=== PATIENT | female | born 1940 | race Caucasian/White ===

== ENCOUNTER 2020-07-29 04:55 | Observation (INO) | payer OTHER, BC ==
[2020-07-29] MEDS ORDERED: METHYLPREDNISOLONE 125 MG INJ ONE (06:13)
[2020-07-29] MEDS ORDERED: IPRATROPIUM BROM 0.5MG/2.5ML ONE (06:13)
[2020-07-29] MEDS ORDERED: PANTOPRAZOLE 40 MG INJ ONE (06:14)
[2020-07-29] MEDS ORDERED: NA CHLORIDE 0.9% 1,000 ML ONE (06:14)
[2020-07-29] MEDS ORDERED: Levofloxacin500mg IV 500 MG/100 ML BAG IV ONE (06:14)
[2020-07-29] MEDS ORDERED: LEVALBUTEROL 1.25 MG/3 ML NEB ONE (06:18)
[2020-07-29 06:30] LABS: Urine Blood NEGATIVE (NEG); Urine Glucose NEGATIVE (NEG); Urine Protein NEGATIVE (NEG)
[2020-07-29 06:32] LABS: Absolute Lymphocytes (CBC) 1.3 K/uL (0.7-4.9); Hematocrit 42.3 % (36.0-45.0); Lymphocytes % 15.3 % (15.3-44.8); MPV 9.9 fL (7.6-11.3); RBC Red Blood Cell Count 4.73 M/uL (3.86-4.86)
[2020-07-29 06:35] LABS: Albumin 3.7 g/dL (3.4-5.0); Bilirubin Direct 0.1 mg/dL (0-0.2); Bilirubin Total 0.4 mg/dL (0.2-1.0); Potassium 3.7 mmol/L (3.5-5.1); Protein, Total 7.8 g/dL (6.4-8.2); Troponin (Emerg Dept Use Only) 0.06 ng/mL (0.0-0.045)
[2020-07-29] MEDS ORDERED: ASPIRIN EC 81 MG TAB PO ONE (06:36)
--- NOTE | 2020-07-29 07:03 | EDPHYS ---
Physician Documentation [facility] Name: Karlie Johnson Age: 80 yrs Sex: Female : 1940 Arrival Date: 07/29/2020 Time: 04:59 Bed 19 Private MD: Osmany Cade B ED Physician Dinh Mancini HPI: 07/29 05:46 This 80 yrs old Female presents to ER via Ambulatory with complaints of penny Cough, acid reflux. 05:46 The patient or guardian reports airway noise, cough, difficulty breathing. Onset: The penny symptoms/episode began/occurred just prior to arrival. Severity of symptoms: At their worst the symptoms were mild, moderate, in the emergency department the symptoms are unchanged. Modifying factors: The symptoms are alleviated by. Associated signs and symptoms: The patient has no apparent associated signs or symptoms. Historical: - Allergies: 05:13 PENICILLINS; mg2 05:13 Sulfa (Sulfonamide Antibiotics); mg2 - Home Meds: 05:13 Metoprolol Tartrate Oral [Active]; Levothroid 112 mcg Oral tab [Active]; hctz [Active]; mg2 telmisartan 80 mg oral tab [Active]; calcium caltrate [Active]; aspirin [Active]; - PMHx: 05:14 Hypertension; hashimotos; mg2 - PSHx: 05:14 lumpectmy; mg2 - Immunization history:: Flu vaccine is up to date. - Social history:: Smoking status: Patient denies any tobacco usage or history of. Patient uses alcohol, weekly. Patient/guardian denies using street drugs, IV drugs. - Family history:: not pertinent. ROS: 05:46 Constitutional: Negative for fever, chills, and weight loss, Eyes: Negative for injury, penny pain, redness, and discharge, ENT: Negative for injury, pain, and discharge, Neck: Negative for injury, pain, and swelling, Respiratory: Negative for shortness of breath, cough, wheezing, and pleuritic chest pain, Back: Negative for injury and pain, : Negative for injury, bleeding, discharge, and swelling, MS/Extremity: Negative for injury and deformity, Skin: Negative for injury, rash, and discoloration, Neuro: Negative for headache, weakness, numbness, tingling, and seizure, Psych: Negative for depression, anxiety, suicide ideation, homicidal ideation, and hallucinations, Allergy/Immunology: Negative for hives, rash, and allergies, Endocrine: Negative for neck swelling, polydipsia, polyuria, polyphagia, and marked weight changes, Hematologic/Lymphatic: Negative for swollen nodes, abnormal bleeding, and unusual bruising. 05:46 Cardiovascular: Positive for chest pain. 05:46 Respiratory: Positive for cough, shortness of breath. 05:46 Abdomen/GI: Positive for gerd. Exam: 05:46 Constitutional: This is a well developed, well nourished patient who is awake, alert, pneny and in no acute distress. Head/Face: Normocephalic, atraumatic. Eyes: Pupils equal round and reactive to light, extra-ocular motions intact. Lids and lashes normal. Conjunctiva and sclera are non-icteric and not injected. Cornea within normal limits. Periorbital areas with no swelling, redness, or edema. ENT: Nares patent. No nasal discharge, no septal abnormalities noted. Tympanic membranes are normal and external auditory canals are clear. Oropharynx with no redness, swelling, or masses, exudates, or evidence of obstruction, uvula midline. Mucous membranes moist. Neck: Trachea midline, no thyromegaly or masses palpated, and no cervical lymphadenopathy. Supple, full range of motion without nuchal rigidity, or vertebral point tenderness. No Meningismus. Chest/axilla: Normal chest wall appearance and motion. Nontender with no deformity. No lesions are appreciated. Cardiovascular: Regular rate and rhythm with a normal S1 and S2. No gallops, murmurs, or rubs. Normal PMI, no JVD. No pulse deficits. Abdomen/GI: Soft, non-tender, with normal bowel sounds. No distension or tympany. No guarding or rebound. No evidence of tenderness throughout. Back: No spinal tenderness. No costovertebral tenderness. Full range of motion. Female : Normal external genitalia. Skin: Warm, dry with normal turgor. Normal color with no rashes, no lesions, and no evidence of cellulitis. MS/ Extremity: Pulses equal, no cyanosis. Neurovascular intact. Full, normal range of motion. Neuro: Awake and alert, GCS 15, oriented to person, place, time, and situation. Cranial nerves II-XII grossly intact. Motor strength 5/5 in all extremities. Sensory grossly intact. Cerebellar exam normal. Normal gait. Psych: Awake, alert, with orientation to person, place and time. Behavior, mood, and affect are within normal limits. 05:46 Respiratory: the patient does not display signs of respiratory distress, Respirations: labored breathing, that is mild, that is moderate, Breath sounds: bronchial sounds, decreased breath sounds, rhonchi, wheezing: expiratory Respiratory rate: 18 07:41 ECG was reviewed by the Attending Physician. epnny 07:43 ECG was reviewed by the Attending Physician. penny Vital Signs: 05:09 BP 161 / 92; Pulse 62; Resp 18; Temp 98.3; Pulse Ox 98% on R/A; Weight 65.77 kg; Height mg2 5 ft. 4 in. (162.56 cm); Pain 2/10; 06:33 BP 167 / 82; Pulse 62; Resp 18; Pulse Ox 97% on Nebulizer Mask; mg2 08:13 BP 147 / 96; Pulse 66; Resp 17; Pulse Ox 98% ; bp 09:00 BP 149 / 86; Pulse 64; Resp 16; Pulse Ox 94% ; bp 10:00 BP 147 / 79; Pulse 68; Resp 17; Pulse Ox 99% ; bp 05:09 Body Mass Index 24.89 (65.77 kg, 162.56 cm) mg2 MDM: 05:01 Patient medically screened. penny 05:49 Differential Diagnosis: Obstructed Airway Bronchitis Upper Respiratory Infection penny Pharyngitis Asthma Exacerbation Pneumonia. Data reviewed: vital signs, nurses notes, lab test result(s), EKG, radiologic studies, plain films. Data interpreted: ekg monitor tech: rate is 62 beats/min, rhythm is regular, Pulse oximetry: on room air. Test interpretation: by ED physician or midlevel provider: ECG, plain radiologic studies. Counseling: I had a detailed discussion with the patient and/or guardian regarding: the historical points, exam findings, and any diagnostic results supporting the discharge/admit diagnosis, the presence of at least one elevated blood pressure reading (>120/80) during this emergency department visit, lab results, radiology results. 07:00 ED course: pt without cp, trop is elevated. penny 07/29 05:45 Order name: Basic Metabolic Panel; Complete Time: 06:53 penny 07/29 05:45 Order name: CBC with Diff; Complete Time: 06:53 penny 07/29 05:45 Order name: LFT's; Complete Time: 06:53 [facility] 07/29 05:45 Order name: Magnesium; Complete Time: 06:53 [facility] 07/29 05:45 Order name: NT PRO-BNP; Complete Time: 06:53 [facility] 07/29 05:45 Order name: Troponin (emerg Dept Use Only); Complete Time: 06:53 [facility] 07/29 05:45 Order name: XRAY Chest (1 view) [facility] 07/29 05:45 Order name: Lipase; Complete Time: 06:53 [facility] 07/29 05:45 Order name: Blood Culture Adult (2) [facility] 07/29 05:51 Order name: D-Dimer; Complete Time: 06:53 [facility] 07/29 06:23 Order name: Urine Dipstick--Ancillary (enter results); Complete Time: 06:53 [facility] 07/29 06:33 Order name: CT Chest Angio; Complete Time: 07:39 [facility] 07/29 07:04 Order name: US Extremity Venous W Compression Nigel [facility] 07/29 08:51 Order name: Procalcitonin [facility] 07/29 05:45 Order name: EKG; Complete Time: 05:46 [facility] 07/29 05:45 Order name: Cardiac monitoring; Complete Time: 06:02 [facility] 07/29 05:45 Order name: EKG - Nurse/Tech; Complete Time: 05:54 [facility] 07/29 05:45 Order name: IV Saline Lock; Complete Time: 06:03 [facility] 07/29 06:59 Order name: EKG; Complete Time: 07:00 [facility] 07/29 08:51 Order name: CONS Physician Consult [facility] 07/29 09:43 Order name: US [facility] 07/29 05:45 Order name: Labs collected and sent; Complete Time: 06:03 [facility] 07/29 05:45 Order name: O2 Per Protocol; Complete Time: 06:03 [facility] 07/29 05:45 Order name: O2 Sat Monitoring; Complete Time: 06:03 [facility] 07/29 06:59 Order name: EKG - Nurse/Tech; Complete Time: 07:23 [facility] EC:41 Rate is 60 beats/min. Rhythm is regular. QRS [place] is Normal. OK interval is normal. QRS penny interval is normal. QT interval is normal. No Q waves. T waves are Normal. ST Segment is depressed in leads II, III, aVF, V5, V6. Clinical impression: NSR w/ Non-specific ST/T Changes. Interpreted by me. Reviewed by me. 07:43 Rate is 73 beats/min. Rhythm is regular. QRS [place] is Normal. OK interval is normal. QRS penny interval is normal. QT interval is normal. No Q waves. T waves are Normal. ST Segment is depressed in leads II, III, aVF. Clinical impression: NSR w/ Non-specific ST/T Changes. Interpreted by me. Reviewed by me. Administered Medications: 06:22 Drug: Xopenex 2.5 mg Route: Inhalation; mg2 06:22 Drug: AtroVENT Aerosol 0.5 mg Route: Inhalation; mg2 06:33 Drug: Aspirin Chewable Tablet 162 mg Route: PO; ll2 06:55 Follow up: Response: No adverse reaction ll2 06:33 Drug: SOLU-Medrol 125 mg Route: IVP; Site: right forearm; ll2 06:55 Follow up: Response: No adverse reaction ll2 06:34 Drug: ProTONIX 40 mg Route: IVP; Site: right forearm; ll2 06:56 Follow up: Response: No adverse reaction mg2 06:34 Drug: NS 0.9% 1000 ml Route: IV; Rate: 125 ml/hr; Site: right forearm; ll2 10:32 Follow up: IV Status: Infusion continued upon admission; IV Intake: 500ml bp 06:34 Drug: levofloxacin 500 mg Volume: 100 ml; Route: IVPB; Infused Over: 60 mins; Site: ll2 right forearm; 10:31 Follow up: IV Status: Completed infusion; IV Intake: 100ml bp 07:15 Drug: Lovenox 1 mg/kg Route: Sub-Q; Site: right lower abdomen; bp 10:31 Follow up: Response: No adverse reaction bp 07:15 Drug: PlaVIX 300 mg Route: PO; bp 07:23 Follow up: Response: No adverse reaction bp Disposition: 07/29/20 07:03 Hospitalization ordered by Ruddy Hanley for Inpatient Admission. Preliminary diagnosis are Dyspnea, Pneumonia, unspecified organism - aspiration, Chest pain, unspecified, Essential (primary) hypertension, Gastro-esophageal reflux disease, Solitary pulmonary nodule, Atelectasis. - Bed requested for Telemetry/MedSurg (Inpatient). - Status is Inpatient Admission. aa5 - Condition is Fair. - Problem is new. - Symptoms have improved. Signatures: Dispatcher [employer] EDMS Dinh Mancini MD MD cha Calderon, Audri, RN RN aa5 Rober Cisse, BUSINESS RECORDS MANAGER-C BUSINESS RECORDS MANAGER-Cla1 Cameron Reyes RN RN ja1 Bo Rivas, RN RN bp Umair Sabillon, RN RN [facility] Madelin Tanner RN RN ll2 Corrections: (The following items were deleted from the chart) 07:45 07:03 Hospitalization Ordered by Ruddy Hanley MD for Inpatient Admission. Preliminary [facility] diagnosis is Dyspnea; Pneumonia, unspecified organism - aspiration; Chest pain, unspecified; Essential (primary) hypertension; Gastro-esophageal reflux disease. Bed requested for Telemetry/MedSurg (Inpatient). Status is Inpatient Admission. Condition is Fair. Problem is new. Symptoms have improved. [facility] 10:05 07:45 07/29/2020 07:03 Hospitalization Ordered by Ruddy Hanley MD for Inpatient ja1 Admission. Preliminary diagnosis is Dyspnea; Pneumonia, unspecified organism - aspiration; Chest pain, unspecified; Essential (primary) hypertension; Gastro-esophageal reflux disease; Solitary pulmonary nodule; Atelectasis. Bed requested for Telemetry/MedSurg (Inpatient). Status is Inpatient Admission. Condition is Fair. Problem is new. Symptoms have improved. [facility] 10:10 10:05 07/29/2020 07:03 Hospitalization Ordered by Ruddy Hanley MD for Inpatient ja1 Admission. Preliminary diagnosis is Dyspnea; Pneumonia, unspecified organism - aspiration; Chest pain, unspecified; Essential (primary) hypertension; Gastro-esophageal reflux disease; Solitary pulmonary nodule; Atelectasis. Bed requested for Telemetry/MedSurg (Inpatient). Status is Inpatient Admission. Condition is Fair. Problem is new. Symptoms have improved. [facility] 10:56 10:10 07/29/2020 07:03 Hospitalization Ordered by Ruddy Hanley MD for Inpatient aa5 Admission. Preliminary diagnosis is Dyspnea; Pneumonia, unspecified organism - aspiration; Chest pain, unspecified; Essential (primary) hypertension; Gastro-esophageal reflux disease; Solitary pulmonary nodule; Atelectasis. Bed requested for Telemetry/MedSurg (Inpatient). Status is Inpatient Admission. Condition is Fair. Problem is new. Symptoms have improved. [facility]
--- NOTE | 2020-07-29 07:03 | ER ---
Nurse's Notes [facility] Name: Karlie Johnson Age: 80 yrs Sex: Female : 1940 Arrival Date: 07/29/2020 Time: 04:59 Bed 19 Private MD: Osmany Cade B Diagnosis: Dyspnea;Pneumonia, unspecified organism-aspiration;Chest pain, unspecified;Essential (primary) hypertension;Gastro-esophageal reflux disease;Solitary pulmonary nodule;Atelectasis Presentation: 07/29 05:09 Chief complaint: Patient states: i woke up \T\ 0315 this morning with acid reflux and mg2 have this crackling or wheezing sound in my chest. i took antacid already. Coronavirus screen: Client denies travel out of the [place] in the last 14 days. Ebola Screen: No symptoms or risks identified at this time. Initial Sepsis Screen: Does the patient meet any 2 criteria? No. Patient's initial sepsis screen is negative. Does the patient have a suspected source of infection? No. Patient's initial sepsis screen is negative. Risk Assessment: Do you want to hurt yourself or someone else? Patient reports no desire to harm self or others. Onset of symptoms was July 29, 2020 at 03:15. 05:09 Method Of Arrival: Ambulatory mg2 05:09 Acuity: MARYANN 3 mg2 Historical: - Allergies: 05:13 PENICILLINS; mg2 05:13 Sulfa (Sulfonamide Antibiotics); mg2 - Home Meds: 05:13 Metoprolol Tartrate Oral [Active]; Levothroid 112 mcg Oral tab [Active]; hctz [Active]; mg2 telmisartan 80 mg oral tab [Active]; calcium caltrate [Active]; aspirin [Active]; - PMHx: 05:14 Hypertension; hashimotos; mg2 - PSHx: 05:14 lumpectmy; mg2 - Immunization history:: Flu vaccine is up to date. - Social history:: Smoking status: Patient denies any tobacco usage or history of. Patient uses alcohol, weekly. Patient/guardian denies using street drugs, IV drugs. - Family history:: not pertinent. Screenin:32 Abuse screen: Denies threats or abuse. Denies injuries from another. Nutritional mg2 screening: No deficits noted. Tuberculosis screening: No symptoms or risk factors identified. Fall Risk IV access (20 points). Assessment: 05:35 Reassessment: see triage assessment. General: Appears in no apparent distress. Behavior ll2 is calm, cooperative, appropriate for age. Pain: Complains of pain in xyphoid area and mid-sternal area. Neuro: Level of Consciousness is awake, alert, obeys commands, Oriented to person, place, time, situation. Cardiovascular: Capillary refill < 3 seconds Patient's skin is warm and dry. Respiratory: Airway is patent Respiratory effort is even, unlabored, Respiratory pattern is regular, symmetrical, Breath sounds with crackles bilaterally. Breath sounds with wheezes bilaterally. GI: No signs and/or symptoms were reported involving the gastrointestinal system. : No signs and/or symptoms were reported regarding the genitourinary system. EENT: No signs and/or symptoms were reported regarding the EENT system. Derm: Skin is intact, is healthy with good turgor, Skin is dry. 06:31 Reassessment: D-dimer of 1123 relayed by the cardiac cath tech Trista. provider informed. mg2 06:37 Reassessment: Patient and/or family updated on plan of care and expected duration. Pain ll2 level reassessed. Patient is alert, oriented x 3, equal unlabored respirations, skin warm/dry/pink. 07:00 Reassessment: RECD REPORT FROM DENNIS PRATT. 80YO WF P/W COUGH AND CP. INITIAL TROP AND bp DDIMER NOTED POSITIVE, ADMIT INITIATED. 07:05 Reassessment: PT TO CT. bp 08:13 Reassessment: Patient appears in no apparent distress at this time. PT SEEN BY ADMIT bp . ADMIT IN PROCESS. 09:00 Reassessment: Patient appears in no apparent distress at this time. No changes from bp previously documented assessment. Patient is alert, oriented x 3, equal unlabored respirations, skin warm/dry/pink. 10:08 Reassessment: Patient appears in no apparent distress at this time. No changes from bp previously documented assessment. Patient is alert, oriented x 3, equal unlabored respirations, skin warm/dry/pink. ADMIT COMPLETE. 10:30 Reassessment: REPORT TO ARLYN PRATT FOR RM 203. bp Vital Signs: 05:09 BP 161 / 92; Pulse 62; Resp 18; Temp 98.3; Pulse Ox 98% on R/A; Weight 65.77 kg; Height mg2 5 ft. 4 in. (162.56 cm); Pain 2/10; 06:33 BP 167 / 82; Pulse 62; Resp 18; Pulse Ox 97% on Nebulizer Mask; mg2 08:13 BP 147 / 96; Pulse 66; Resp 17; Pulse Ox 98% ; bp 09:00 BP 149 / 86; Pulse 64; Resp 16; Pulse Ox 94% ; bp 10:00 BP 147 / 79; Pulse 68; Resp 17; Pulse Ox 99% ; bp 05:09 Body Mass Index 24.89 (65.77 kg, 162.56 cm) mg2 ED Course: 04:59 Patient arrived in ED. am2 04:59 Osmany Cade MD is Private Physician. am2 05:00 Umair Sabillon RN is Primary Nurse. mg2 05:01 Dinh Mancini MD is Attending Physician. penny 05:11 Triage completed. mg2 05:11 Arm band placed on. mg2 06:00 Inserted saline lock: 22 gauge in right forearm, using aseptic technique. Blood mg2 collected. by SANTA Yusuf. 06:04 XRAY Chest (1 view) In Process Unspecified. EDMS 06:32 Patient has correct armband on for positive identification. residential monitor on. Pulse mg2 ox on. NIBP on. Door closed. 06:32 No provider procedures requiring assistance completed. mg2 07:01 Ruddy Hanley MD is Hospitalizing Provider. penny 07:16 CT Chest Angio In Process Unspecified. EDMS 10:08 Patient admitted, IV remains in place. bp Administered Medications: 06:22 Drug: Xopenex 2.5 mg Route: Inhalation; mg2 06:22 Drug: AtroVENT Aerosol 0.5 mg Route: Inhalation; mg2 06:33 Drug: Aspirin Chewable Tablet 162 mg Route: PO; ll2 06:55 Follow up: Response: No adverse reaction ll2 06:33 Drug: SOLU-Medrol 125 mg Route: IVP; Site: right forearm; ll2 06:55 Follow up: Response: No adverse reaction ll2 06:34 Drug: ProTONIX 40 mg Route: IVP; Site: right forearm; ll2 06:56 Follow up: Response: No adverse reaction mg2 06:34 Drug: NS 0.9% 1000 ml Route: IV; Rate: 125 ml/hr; Site: right forearm; ll2 10:32 Follow up: IV Status: Infusion continued upon admission; IV Intake: 500ml bp 06:34 Drug: levofloxacin 500 mg Volume: 100 ml; Route: IVPB; Infused Over: 60 mins; Site: ll2 right forearm; 10:31 Follow up: IV Status: Completed infusion; IV Intake: 100ml bp 07:15 Drug: Lovenox 1 mg/kg Route: Sub-Q; Site: right lower abdomen; bp 10:31 Follow up: Response: No adverse reaction bp 07:15 Drug: PlaVIX 300 mg Route: PO; bp 07:23 Follow up: Response: No adverse reaction bp Intake: 10:31 IV: 100ml; Total: 100ml. bp 10:32 IV: 500ml; Total: 600ml. bp Outcome: 07:03 Decision to Hospitalize by Provider. penny 10:30 Admitted to Tele accompanied by tech, family with patient, via wheelchair, room 203, bp with chart, Report called to ARLYN PRATT 10:30 Condition: stable 10:30 Instructed on the need for admit. 10:56 Patient left the ED. aa5 Signatures: Dispatcher [employer] EDMS Dinh Mancini MD MD cha Calderon, Audri, RN RN aa5 Mercedes De La Garza amBo Melo RN RN bp Umair Sabillon RN RN mg2 Madelin Tanner, RN RN ll2 Corrections: (The following items were deleted from the chart) 06:53 06:33 BP 167 / 82; Pulse 52bpm; Resp 18bpm; Pulse Ox 97% Nebulizer Mask; mg2 mg2 07:09 07:00 Reassessment: RECD REPORT FROM DENNIS PRATT. 80YO WF P/W COUGH AND CP. INITIAL TROP bp NOTED POSITIVE, ADMIT INITIATED bp
[2020-07-29] MEDS ORDERED: CLOPIDOGREL 75 MG TABLET ONE (07:10)
[2020-07-29] MEDS ORDERED: ENOXAPARIN 60 MG/0.6 ML SQ ONE (07:12)
--- NOTE | 2020-07-29 07:35 | RAD REPORT ---
EXAM DESCRIPTION: CT - Chest Angio - 07/29/2020 7:16 am CLINICAL HISTORY: Chest pain. COUGH COMPARISON: No comparisons TECHNIQUE: CT angiogram of the pulmonary arteries was performed with MIP. All CT scans are performed using dose optimization technique as appropriate and may include automated exposure control or mA/KV adjustment according to patient size. FINDINGS: No evidence of pulmonary thromboembolism. No acute aortic finding demonstrated. The lungs are mildly emphysematous with linear atelectasis in both lung bases. Noncalcified 12 mm pul monary nodule seen in the right middle lobe. No significant pericardial or pleural fluid. Large hiatal hernia. No concerning bony finding. IMPRESSION: No evidence of pulmonary thromboembolism. Mild diffuse COPD with atelectasis in both lung bases. 12 mm noncalcified right middle lobe pulmonary nodule. Followup nonemergent PET-CT imaging would be a dvised.
--- NOTE | 2020-07-29 09:42 | RAD REPORT ---
EXAM DESCRIPTION: US - Extrem Venous W Compress Nigel - 07/29/2020 9:16 am CLINICAL HISTORY: PAIN Bilateral leg edema and swelling. COMPARISON: No comparisons TECHNIQUE: Real-time sonographic interrogation of the left and right lower extremity deep venous sys tems was performed. FINDINGS: Normal compressibility, flow augmentation, phasic flow and spontaneous flow is identified in both the left and right lower extremity deep venous systems. IMPRESSION: No sonographic evidence of left or right lower extremity deep venous thrombosis.
[2020-07-29] MEDS ORDERED: METOPROLOL TAR 50 MG TAB PO SCH (11:06)
[2020-07-29] MEDS ORDERED: ASPIRIN EC 81 MG TAB PO SCH (11:06)
[2020-07-29] MEDS ORDERED: PANTOPRAZOLE 40MG TABLET PO ONE (11:06)
[2020-07-29 11:28] VITALS: BMI 26.0
--- NOTE | 2020-07-29 11:46 | RAD REPORT ---
EXAM DESCRIPTION: RAD - Chest Single View - 07/29/2020 6:04 am CLINICAL HISTORY: Chest pain;Dyspnea Chest pain. COMPARISON: Chest Angio dated 07/29/2020 FINDINGS: Portable technique limits examination quality. The lungs are mildly emphysematous but clear of acute infiltrate. The heart is upper limit normal in size. No displaced fractures. IMPRESSION: No acute intrathoracic process suspected.
[2020-07-29 12:00] LABS: Troponin I 0.06 ng/mL (0.0-0.045)
--- NOTE | 2020-07-29 13:29 | CON ---
Date of Consultation: 07/29/2020 Reason For Consultation: Chest discomfort and borderline elevated troponin. History Of Present Illness: This is a 80-year-old female with history of hypertension, hypothyroidis m, breast lump status post lumpectomy, presented with burning sensation that woke her up at 4 o'clock in the morning, retrosternal, with cough and hoarseness. She took an antiacid medication over-the-c ounter. She took cimetidine without good relief. Presented to the emergency room. Troponin was bor derline at 0.06. She did not have an actual chest pain or shortness of breath, diaphoresis, or nause a. Not known to have any cardiac issues and at this point, she is lying in bed comfortably without a ny specific complaints. Past Medical History: As outlined above in the HPI. Medications: Refer to reconciliation sheet for detailed list. Allergies: SULFA AND PENICILLIN. Social History: She does not smoke or drink. Does not use any drugs. Review of Systems: All systems reviewed and they were negative except what mentioned in the HPI. Physical Examination: Vital Signs: Temperature is 98.1, pulse 71, breathing 18, blood pressure is 148/91, saturating 95% o n room air. General: Pleasant, elderly female, in no distress. Head and Neck: Pupils are equal, react to light. Intact eye movements. No JVD. No cervical lympha denopathy. Neck: Supple. Thyroid is not enlarged. Lungs: Clear to auscultation bilaterally. No rhonchi, rales, or crackles. No accessory muscle use. Heart: Regular rate and rhythm. No extra sounds. Abdomen: Soft, nontender. Bowel sounds positive. No organomegaly. No masses or hernia. No rigidi ty or rebound. Extremities: No edema, clubbing, or cyanosis. Intact pulses. Skin: No rash noted. Neurologic: Alert, awake, oriented x3. No acute focal deficits appreciated. Investigations: Troponin 0.06 x2. LDL is 99, HDL is 65. Sodium 142, creatinine 0.96, and D-dimer w as 1123. CTA of the chest was negative for PE. Mild diffuse COPD is present. Assessment And Plan: Chest discomfort with borderline elevated troponin. Given her age and the pres ence of hypertension, recommend further cardiac evaluation. First trend troponins and the patient wa s offered the route of invasive investigations with coronary angiogram versus noninvasive with exerci se stress test. She elected to go with a stress test and this is an okay option unless her troponin jumps up to higher level. Please schedule exercise nuclear stress test and continue to trend troponi ns. Agree with aspirin for now and further management and recommendations to follow after stress karthik t results. Thank you for the consult. /KATARZYNA Voice ID: [id number] Report ID: [id number]
--- NOTE | 2020-07-29 14:12 | P.HP ---
Certification for Inpatient Patient admitted to: Observation With expected LOS: <2 Midnights Practitioner: I am a practitioner with admitting privileges, knowledge of patient current condition, hospital course, and medical plan of care. Services: Services provided to patient in accordance with Admission requirements found in Title 42 Section 412.3 of the Code of Federal Regulations Patient History Date of Service: 07/29/20 History of Present Illness: 80yo female, PMH: HTN, Bhavik thyroiditis, GERD, who presented to the ED due to sudden onset coughing and burning chest pain when she woke up this morning at approximately 3:00 a.m.. She feels like she had some reflux come upper throat and down her possibly into her lungs causing burning sensation, lasting 20-30 min. She also states she had some crackling in her chest, resolved with breathing treatments in the ED. She reports at least 2 other episodes in her life, but this was much more severe. She reports pelvic pain in her usual state of health. In the ED, she had no leukocytosis, elevated D-dimer (1123), normal CMP, elevated troponin at 0.06, negative pro calcitonin, negative UA. BNP: 425. CXR: No acute intrathoracic process. CTA: No evidence of PE, mild diffuse COPD with atelectasis in both lung bases, and a 12 mm noncalcified right middle lobe pulmonary nodule. No significant pericardial or pleural fluid. Large hiatal hernia EKG with nonspecific ST changes, I am very mild depression in leads 2, 3, V5-V6. The patient does report being told she has "An EKG abnormality" but is unclear what exactly. Allergies Penicillins Allergy (Verified 07/29/20 13:34) Itching/Hives/Rash Sulfa (Sulfonamide Antibiotics) Allergy (Verified 07/29/20 13:34) Itching/Hives/Rash Home Medications: Aspirin [Ecotrin 81 MG] 81 mg PO DAILY 07/29/20 Levothyroxine [Synthroid] 112 mcg PO [id number] 07/29/20 Metoprolol Succinate [Toprol Xl] 100 mg PO BID 07/29/20 Telmisartan 80 mg PO DAILY 07/29/20 hydroCHLOROthiazide [Hydrochlorothiazide*] 12.5 mg PO DAILY 07/29/20 - Past Medical/Surgical History Has patient received pneumonia vaccine in the past: Yes -: HTN -: Hashimotos -: GERD -: Lt breast lumpectomy - Family History Mother -: Other (see notes) (Blood clot) - Social History Smoking Status: Never smoker Alcohol use: Yes CD- Drugs: No Caffeine use: Yes Place of Residence: Home Review of Systems 10-point ROS is otherwise unremarkable Physical Examination - Vital Signs Temperature: 98.1 F Blood Pressure: 148/91 Pulse: 71 Respirations: 18 Pulse Ox (%): 95 - Physical Exam General: Alert, In no apparent distress HEENT: Mucous membr. moist/pink, Sclerae nonicteric Neck: No LAD Respiratory: Clear to auscultation bilaterally, Normal air movement Cardiovascular: No edema, Regular rate/rhythm, Normal S1 S2 Gastrointestinal: Soft and benign, Non-distended, No tenderness Musculoskeletal: No erythema, No tenderness Integumentary: No rashes Neurological: Normal speech, Normal affect - Studies Laboratory Data (last 24 hrs) 07/29/20 06:07: WBC 8.2 D, Hgb 14.2, Hct 42.3, Plt Count 206 07/29/20 06:07: Sodium 142, Potassium 3.7, BUN 19 H, Creatinine 0.97, Glucose 104, Magnesium 2.0, Total Bilirubin 0.4, AST 28, ALT 34, Alkaline Phosphatase 65, Lipase 289 Assessment and Plan - Advance Directives Does patient have a Living Will: Yes Does patient have a Durable POA for Healthcare: Yes Physician Review Additional Text: Chest discomfort with borderline elevated troponin. -will continue trend troponins -cardiology consulted given patient's age and risk factors. 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
[2020-07-29] MEDS: METOPROLOL XL 100 MG TAB PO SCH (20:58)
[2020-07-29] MEDS: predniSONE 20 MG TAB PO SCH (20:58)
[2020-07-29] MEDS ORDERED: ATORVASTATIN 40 MG TAB PO SCH (21:00)
[2020-07-30 04:48] LABS: Basophils % 0.2 % (0-1.3); Hematocrit 38.1 % (36.0-45.0); Lymphocytes % 7.5 % (15.3-44.8); MPV 9.7 fL (7.6-11.3); RBC Red Blood Cell Count 4.23 M/uL (3.86-4.86)
[2020-07-30 05:23] LABS: Blood Morphology Comment NOT SEEN (NOT SEEN); Platelet Estimate ADEQ
[2020-07-30] MEDS ORDERED: LEVOTHYROXINE SOD 0.112 MG TAB PO SCH (06:00)
[2020-07-30] MEDS: METOPROLOL XL 100 MG TAB PO SCH (08:24)
[2020-07-30] MEDS: predniSONE 20 MG TAB PO SCH (08:24)
[2020-07-30] MEDS ORDERED: ASPIRIN EC 81 MG TAB PO SCH (09:00)
[2020-07-30] MEDS ORDERED: VALSARTAN 160 MG TAB PO SCH (09:00)
[2020-07-30] MEDS ORDERED: hydroCHLOROthiazide 12.5 MG CAP PO SCH (09:00)
[2020-07-30] MEDS ORDERED: TELMISARTAN 80 MG PO SCH (09:00)
[2020-07-30] MEDS ORDERED: REGADENOSON 0.4 MG/5 ML SYR IV ONE (09:33)
--- NOTE | 2020-07-30 13:06 | RAD REPORT ---
EXAM DESCRIPTION: NM - Rest Stress Cardiac Imaging - 07/30/2020 12:11 pm CLINICAL HISTORY: Chest pain. COMPARISON: None. TECHNIQUE: The patient was administered 10.1 mCi of Tc 99m Sestamibi prior to resting SPECT imaging of the heart. The patient was then administered 30.1 mCi of Tc 99m Sestamibi following exercise or ph armacologic stress. Multiplanar SPECT images were reviewed. FINDINGS: Small area of diminished radiotracer uptake involves the inferior wall on stress and rest images probably attenuation from the diaphragm Otherwise there is normal radiotracer activity involving the entire left ventricular myocardium on re st and stress images. Left ventricular ejection fraction 59% IMPRESSION: No evidence stress-induced ischemia
[2020-07-30 17:17] VITALS: BP 144/67; TEMP 97.1
[2020-07-30 17:49] VITALS: O2SAT 96
--- NOTE | 2020-07-30 17:49 | P.DS ---
Admission Date: 07/29/20 Discharge Date: 07/30/20 Primary Care Provider: Dr. Cade Disposition: ROUTINE DISCHARGE Discharge Condition: GOOD Reason for Admission: Chest pain, elevated troponin Consultations: Cardiology - Dr. Shahid Procedures: CXR (07/29): No acute intrathoracic process suspected CTA chest (07/29): No evidence of PE, mild diffuse COPD with atelectasis in both lung bases. 12 mm noncalcified RML pulmonary nodule. Large hiatal hernia Bilateral venous Doppler (07/29): Negative for DVT in bilateral lower extremities Nuclear stress test (07/30): LV EF: 59%, no evidence of stress-induced ischemia. Chest discomfort or borderline elevated troponin Acid reflux Aspiration pneumonitis HTN Bhavik's thyroiditis Brief History of Present Illness: 80yo female, PMH: HTN, Bhavik thyroiditis, GERD, who presented to the ED due to sudden onset coughing and burning chest pain when she woke up this morning at approximately 3:00 a.m.. She feels like she had some reflux come upper throat and down her possibly into her lungs causing burning sensation, lasting 20-30 min. She also states she had some crackling in her chest, resolved with breathing treatments in the ED. In the ED, she had no leukocytosis, elevated D-dimer (1123), normal CMP, elevated troponin at 0.06, negative pro calcitonin, negative UA. BNP: 425. EKG with nonspecific ST changes, very mild depression in leads 2, 3, V5-V6. The patient does report being told she has "An EKG abnormality" but is unclear what exactly. Hospital Course: Patient was admitted, and troponins were trended (0.06 x 2, then 0.05 x 2). She had no recurrence of her chest discomfort during hospitalization. Cardiology was consulted due to the mildly elevated troponins. Patient underwent nuclear stress testing, which was negative. There was no pneumonia on CT, negative pro calcitonin, no leukocytosis. Patient was treated for mild aspiration pneumonitis with prednisone and discharged home with 3 days of 20mg BID prednisone. She is to follow up with her PCP, if continues to have reflux symptoms, further workup/treatment of her large hiatal hernia. She was advised to eat smaller, more frequent meals, avoid spicy foods. Vital Signs/Physical Exam: Temp Pulse Resp BP Pulse Ox 97.1 F 64 15 144/67 H 96 07/30/20 16:00 07/30/20 16:00 07/30/20 16:00 07/30/20 16:00 07/30/20 16:00 General: Alert, In no apparent distress HEENT: Mucous membr. moist/pink, Sclerae nonicteric Neck: Supple, JVD not distended Respiratory: Clear to auscultation bilaterally, Normal air movement Cardiovascular: No edema, Regular rate/rhythm, Normal S1 S2 Gastrointestinal: Soft and benign, Non-distended, No tenderness Musculoskeletal: No erythema, No tenderness Integumentary: No rashes Neurological: Normal speech, Normal affect Laboratory Data at Discharge: WBC 13.7 K/uL (4.3-10.9) H D 07/30/20 04:07 Hgb 12.9 g/dL (12.0-15.0) 07/30/20 04:07 Hct 38.1 % (36.0-45.0) 07/30/20 04:07 Plt Count 189 K/uL (152-406) 07/30/20 04:07 Sodium 144 mmol/L (136-145) 07/30/20 04:07 Potassium 4.0 mmol/L (3.5-5.1) 07/30/20 04:07 BUN 20 mg/dL (7-18) H 07/30/20 04:07 Creatinine 1.09 mg/dL (0.55-1.3) 07/30/20 04:07 Glucose 137 mg/dL (74-106) H 07/30/20 04:07 Magnesium 2.0 mg/dL (1.8-2.4) 07/29/20 06:07 Total Bilirubin 0.4 mg/dL (0.2-1.0) 07/29/20 06:07 AST 28 U/L (15-37) 07/29/20 06:07 ALT 34 U/L (12-78) 07/29/20 06:07 Alkaline Phosphatase 65 U/L (45-117) 07/29/20 06:07 Troponin I 0.05 ng/mL (0.0-0.045) H 07/29/20 22:45 Triglycerides 112 mg/dL (<150) 07/29/20 11:30 Cholesterol 186 mg/dL (<200) 07/29/20 11:30 HDL Cholesterol 65 mg/dL (40-60) H 07/29/20 11:30 Cholesterol/HDL Ratio 2.86 07/29/20 11:30 Lipase 289 U/L (73-393) 07/29/20 06:07 Home Medications: Aspirin [Ecotrin 81 MG] 81 mg PO DAILY 07/29/20 Levothyroxine [Synthroid*] 112 mcg PO [id number] 07/29/20 Metoprolol Succinate [Toprol Xl] 100 mg PO BID 07/29/20 Telmisartan 80 mg PO DAILY 07/29/20 hydroCHLOROthiazide [Hydrochlorothiazide*] 12.5 mg PO DAILY 07/29/20 predniSONE [Prednisone*] 20 mg PO BID 3 Days #6 tab 07/30/20 New Medications: predniSONE [Prednisone*] 20 mg PO BID 3 Days #6 tab Patient Discharge Instructions: Follow up with PCP within 3-5 days. Eat smaller, more frequent meals for your Large hiatal hernia. Diet: small meals Activity: Ad ronnie Followup: Osmany Cade MD [Primary Care Provider] -
--- NOTE | 2020-07-31 07:51 | TREADPHA ---
DX: CHEST PAIN Date of Study: 07/30/2020 Ht: 5' 4 " Wt: 151 lb 9 oz Consulting Physician: GALA MEDICATIONS: ASPIRIN SYNTHROID, TOPROL XL, DELTASONE, HYDROCHOROTHIAZIDE, DIOVAN HISTORY: 76 YEAR OLD FEMALE WITH HISTORY OF BREAST CANCER, HYPOTHROIDISM, HIGH CHOLESTEROL. ADMITTED FOR CHEST PAIN. DENIES CHEST PAIN. PHYSICIAL EXAMINATION: RESTING B.P.: RESTING H.R.: RESTING EKG: PROTOCOL: PHARMACOLOGIC EXERCISE TIME: 3:30 B.P. AT [facility] STRESS: IMPRESSION: BASELINE ELECTROCARDIOGRAM IS WITHIN NORMAL LIMITS, WITH NO CHANGE WITH LEXISCAN, WITH SOME PREMATURE VENTRICULAR COMPLEXES.
== END 2020-07-30 16:57 | disposition home or self-care (01) ==
LOC: ER 04:55 → ERHOLD 08:49 → 2ND 10:31
PROVIDERS: ADMIT Hospitalist; ATTEND Hospitalist
DX: J69.0 Pneumonitis due to inhalation of food and vomit (principal); K21.9 Gastro-esophageal reflux disease without esophagitis; I10 Essential (primary) hypertension; E06.3 Autoimmune thyroiditis; R91.1 Solitary pulmonary nodule; K44.9 Diaphragmatic hernia without obstruction or gangrene; R22.43 Localized swelling, mass and lump, lower limb, bilateral; Z20.828 Contact with and (suspected) exposure to other viral communicable diseases; R74.8 Abnormal levels of other serum enzymes; Z79.82 Long term (current) use of aspirin
CPT/HCPCS: 96365; 93005 ×2; 93017; 87040 ×2; 85025 ×2; 80048 ×2; 36415 ×2; 83735; 80061; 85379; 80076; 81003; 84484 ×4; 83690; 84145; 83880; 71275; 71045; 93970; 94760 ×3; 78452; 96375; 96372; 99285; 96366; U0002; Q9967; C9113; J1650; J2785; J7030; J2930; A9500; G0378 ×3; J7512

== ENCOUNTER 2022-11-12 23:34 | Emergency (ER) | payer OTHER, BC ==
--- OUTSIDE RECORDS SUMMARY | 2022-11-12 23:36 | XMS REPORT | Continuity of Care Document ---
:1940 Author Organization [facility] t Address [facility] [place] [address] Care Team Providers Name Role Phone ANNIKA GRULLON Primary Care Physician Unavailable Leighann CUNNINGHAM, Evelin Alonso Attending Clinician [phone] EVELIN LAWTON Attending Clinician Unavailable ANNIKA GRULLON Attending Clinician Unavailable Payers Payer Name Policy Type Policy Number Effective Date Expiration Date S ource Problems This patient has no known problems. Allergies, Adverse Reactions, Alerts This patient has no known allergies or adverse reactions. Social History Social Habit Start Date Stop Date Quantity Comments Source Sex Assigned At [address] [facility] 00[facility]00[facility]00 [facility] Medications This patient has no known medications. Procedures Procedure Date / Time Performed [facility]forming [facility] 2022-05[facility]21 11:30:00 [facility] WITH MO Al[facility] BILATERAL Plan of Care Planned Activity Planned Date Details Comments Source Future Scheduled 2022-10-[address] [facility] Test 00:00:00 (12+) [code = [facility] Center DEPRESSION SCREENING (12+)] Future Scheduled 2022-10-12 FALLS RISK SCREENING [facility] Test 00:00:00 [code = FALLS RISK Medical enter SCREENING] Future Scheduled 2022-06-[address] [facility] Test 00:00:00 (#1) [code = [facility] Center INFLUENZA VACCINE (#1)] Future Scheduled 2022-03-01 DTAP/TDAP/TD VACCINES [facility] 00:00:00 (2 - Td or Tdap) [facility] [code = DTAP/TDAP/TD VACCINES (2 - Td or Tdap)] Future Scheduled 2010-02-13 SHINGLES VACCINES ([address] [facility] Test 00:00:00 of 3) [code = Medical Center SHINGLES VACCINES (2 of 3)] Future Scheduled 2007-07-[address] [facility] 00:00:00 WELLNESS (YEAR 2 or Medical Center FIRST YEAR if no IPPE) [code = MEDICARE ANNUAL WELLNESS (YEAR 2 or FIRST YEAR if no IPPE)] Future Scheduled [address] [facility] Test 00:00:00 Counseling and Medical Cente r Screening (12+) [code = Tobacco Cessation Counseling and Screening (12+)] Future Scheduled 1942[birth year]01[birth year]15 COVID-19 VACCINE (#1) [facility] 00:00:00 [code = COVID-[address] VACCINE (#1)] Future Scheduled 1940 DXA SCAN [code = DXA [facility] Test 00:00:00 SCAN] [facility] Center Encounters Start End Encounter Admission Attending Care Care Encounter Source Date/Time Date/Time Type Type Clinicians Facility Department ID 2022-05-21 2022-05-21 [facility] [id number] 10:52:04 23:59:00 Encounter [facility] 2022-05-21 2022-05-21 Outpatient EL [facility] [id number] [facility] 10:52:04 23:59:00 2022-05-21 2022-05-21 Outpatient [facility] [id number] [facility] 10:51:44 10:51:00 EVELIN 2022-05-21 2022-05-21 [facility] [id number] 10:30:00 10:51:00 Encounter [facility] 2022-05-20 2022-05-20 Outside [facility] [id number] 00:00:00 00:00:00 Orders [facility] 2022-04-07 2022-04-07 Outside [facility] [id number] 00:00[facility]00 00:00:00 [facility] 2021-05-15 2021-05-15 Outpatient [facility]SL SL[facility] [id number] [facility] 00:00:00 00:00:00 2021-05-15 2021-05-15 Outpatient EL [facility] [id number] [facility] 00:00:00 00:00:00 2021-01-02 2021-01-02 Outpatient MITCHEL, SLSL SLSL [id number] [facility] 00:00:00 00:00:00 ANNIKA 2021-01-02 2021-01-02 Outpatient EL MITCHEL, [facility]SL SLSL [id number] [facility] 00:00:00 00:00:00 ANNIKA 2020-12-05 2020-12-05 Outpatient EL [facility] [id number] [facility] 00:00:00 00:00:00 2020-12-05 2020-12-05 Outpatient EL [facility] [id number] [facility] 00:00:00 00:00:00 2020-10-29 2020-10-29 Outpatient EL [facility] [id number] [facility] 00:00:00 00:00:00 2020-10-01 2020-10-01 Outpatient EL MITCHEL, SLSL SLSL [id number] [facility] 00:00:00 23:59:00 ANNIKA Results Test Description Test Time Test Comments Results Result Sourc e Comments MM, DIGITAL 2022-05-21 Diagnostic MAMMO, 12:04:00 workup per DIAGNOSTIC, WITH radiologist?->Ye [facility], BILATERAL sReason for [facility] - MEDICAL INCLUDING CAD Exam:->OTHER CENTERName: MALACHI CAVANAUGH : 1940 Sex: F MR N#: [id number] - MM, DIGITAL MAMMO, DIAGNOSTIC, WITH MO, BILATERAL INCLUDING CAD BILATERAL DIGITAL DIAGNOSTIC MAMMOGRAM 3D/2D WITH CAD: 05/21/2022omparison is made to exams dated: 05/15/2021 mammogram, 01/02/2021 mammogram, and 10/29/2020 mammogram - [facility]. There are scattered fibroglandular elements in both breasts that could obscure a lesion on mammography. Tomosynthesis 3D imaging of the breast was also performed. Current study was also evaluated with a Computer Aided Detection (CAD) system. No significant masses, calcifications, or other findings are seen in either breast. Round calcifications with segmental distribution in the 1:00 right breast show no signficant change dating back to 10/29/2020. Stable nodular densities in the retroareolar right breast.There has been no significant interval change. IMPRESSION: BENIGNThere is no mammographic evidence of malignancy. A 1 year screening mammogram is recommended. Luis Brush M.D. km/:05/21/2022 12:04:51 Normal [facility] 1-2 Mammogram BI-RADS: 2 Benign , DIGITAL 2021-05-15 Diagnostic MAMMO, 12:01:00 workup per DIAGNOSTIC, WITH radiologist?->Ye [facility] MO, RIGHT sReason for [facility] - MEDICAL INCLUDING CAD Exam:->r92.1 CENTERName: MALACHI CAVANAGUH : 1940 Sex: F MR N#: [id number] - MM, DIGITAL MAMMO, DIAGNOSTIC, WITH MO, RIGHT INCLUDING CAD UNILATERAL RIGHT DIGITAL DIAGNOSTIC MAMMOGRAM 3D/2D WITH CAD: 05/15/2021omparison is made to exams dated: 01/02/2021 mammogram, 10/29/2020 mammogram - [facility], 10/27/2019 mammogram, and 09/15/2018 mammogram. There are scattered fibroglandular elements in right breast that could obscure a lesion on mammography. Tomosynthesis 3D imaging of the breast was also performed. Current study was also evaluated with a Computer Aided Detection (CAD) system. Diagnostic right breast mammogram views were performed. Redemonstration of multiple round calcifications with segmental distribution in the approximate 1:00 position of the right breast, anterior to mid depth. No significant interval change from 10/29/2020. There is also a benign nodule within the right breast 1:00 position, anterior depth. Otherwise, no mass, distortion, or suspicious calcification is seen. IMPRESSION: PROBABLY BENIGNRound calcification with segmental distribution in the approximate 1:00 position of the right breast demonstrate no significant change from 10/29/2020. Management options were discussed with the patient, including definitive evaluation with stereotactic guided biopsy. At this time, the patient opts for six-month follow-up mammogram. The patient will also be due for bilateral mammography at this time. Luis Brush M.D. km/:05/15/2021 12:01:33 Followup Recommended [facility] 3 Mammogram BI-RADS: 3 Probably benign , DIGITAL 2021-01-02 Diagnostic MAMMO, 13:48:00 workup per DIAGNOSTIC, WITH radiologist?->Ye [facility] MO, RIGHT sReason for [facility] - MEDICAL INCLUDING CAD Exam:->h.o of CENTERName: [facility] breast ángela Bran : 1940 Sex: F N#: [id number] - MM, DIGITAL MAMMO, DIAGNOSTIC, WITH MO, RIGHT INCLUDING CAD UNILATERAL RIGHT DIGITAL DIAGNOSTIC MAMMOGRAM 3D/2D WITH CAD: 01/02/2021omparison is made to exam dated: 10/29/2020 mammogram - [facility]. There are scattered fibroglandular elements in right breast that could obscure a lesion on mammography. Tomosynthesis 3D imaging of the breast was also performed. Current study was also evaluated with a Computer Aided Detection (CAD) system. There are segmental round calcifications in the right breast at 1 o'clock anterior to middle depth. These are seen in additional views. No other significant masses or calcifications are seen in the breast. IMPRESSION: SUSPICIOUS OF MALIGNANCYThe findings and recommendations have been discussed with the patient. The segmental round calcifications in the right breast have a differential diagnosis of previous trauma and are at a low suspicion for malignancy. A stereotactic biopsy is recommended. Reid Godinez M.D. pth/:01/02/2021 13:48:41 Biopsy Required [facility] 4-5 Mammogram BI-RADS: 4a Low suspicion for malignancy , DIGITAL, 2020-10-29 Diagnostic MAMMO, SCREENING, 13:58:00 workup per WITH MO, radiologist?->Ye [facility] BILATERAL sReason for [facility] - MEDICAL INCLUDING CAD Exam:->[id number] CENTERName: MALACHI CAVANAUGH : 1940 Sex: F N#: [id number] - MM, DIGITAL, MAMMO, SCREENING, WITH MO, BILATERAL INCLUDING CAD BILATERAL DIGITAL SCREENING MAMMOGRAM 3D/2D WITH CAD: 10/29/2020omparison is made to exams dated: 10/27/2019 mammogram and 09/15/2018 mammogram. There are scattered fibroglandular elements in both breasts that could obscure a lesion on mammography. Tomosynthesis 3D imaging of the breast was also performed. Current study was also evaluated with a Computer Aided Detection (CAD) system. There are benign appearing masses in the right breast which are stable. Scattered benign appearing calcifications are present in both breasts. There is a post-surgical scar associated with the left breast. There are new grouped calcifications in the right breast at 1 o'clock anterior to middle depth. No other significant findings are seen in either breast. IMPRESSION: INCOMPLETE: NEEDS ADDITIONAL IMAGING EVALUATIONThe new grouped calcifications in the right breast are indeterminate. Magnification CC and ML views are recommended. Reid Godinez M.D. pth/:10/29/2020 13:58:59 Additional Imaging Needed [facility] 0 Mammogram BI-RADS: 0 Indeterminate
[2022-11-13] MEDS ORDERED: ONDANSETRON 4 MG/2 ML VIAL ONE ×3 (00:39→06:01)
[2022-11-13] MEDS ORDERED: NA CHLORIDE 0.9% 1,000 ML ONE (00:39)
[2022-11-13] MEDS ORDERED: PANTOPRAZOLE 40 MG INJ ONE (00:39)
[2022-11-13] MEDS ORDERED: MORPHINE 4 MG/ML SYR ONE ×2 (00:39→02:00)
[2022-11-13 00:54] LABS: Absolute Lymphocytes (CBC) 1.1 K/uL (0.7-4.9); Hematocrit 43.6 % (36.0-45.0); Lymphocytes % 6.8 % (15.3-44.8); MPV 9.3 fL (7.6-11.3); RBC Red Blood Cell Count 4.89 M/uL (3.86-4.86)
[2022-11-13 01:29] LABS: ALT/SGPT 54 U/L (13-56); AST/SGOT 72 U/L (15-37); Albumin 3.7 g/dL (3.4-5.0); Alkaline Phosphatase 77 U/L (45-117); BUN Blood Urea Nitrogen 24 mg/dL (7-18); Bicarbonate 26 mmol/L (21-32); Bilirubin Total 0.6 mg/dL (0.2-1.0); Glomerular Filtration Rate 54 ml/min (=/>90); Glucose Level 161 mg/dL (74-106); Protein, Total 7.9 g/dL (6.4-8.2); Sodium Level 142 mmol/L (136-145)
[2022-11-13 01:30] LABS: Lipase > 30000 U/L (73-393); Potassium 2.9 mmol/L (3.5-5.1); Troponin High Sensitivity 76.1 pg/mL (<58.9)
[2022-11-13 02:08] LABS: HDL Cholesterol 58 mg/dL (40-60); LDL Cholesterol, Calculated 130 mg/dL (<130)
[2022-11-13 03:09] LABS: SARS-CoV-2 Antigen Rapid Res Negative (Negative)
[2022-11-13] MEDS ORDERED: NA CHLORIDE 0.9% 500 ML ONE (03:19)
[2022-11-13] MEDS ORDERED: KCL 20 MEQ/100 mL IVPB 200 ML IV ONE (03:19)
[2022-11-13] MEDS ORDERED: HYDROMORPHONE HCL 0.5 MG/0.5 ML INJ ONE ×2 (03:19→06:01)
[2022-11-13] MEDS ORDERED: Meropenem 1000 MG/VIAL IV ONE (04:32)
[2022-11-13] MEDS ORDERED: NA CHLORIDE 0.9% 100 ML ONE (04:33)
--- NOTE | 2022-11-13 05:24 | ER ---
Nurse's Notes [facility] Name: Karlie Johnson Age: 82 yrs Sex: Female : 1940 Arrival Date: 11/12/2022 Time: 23:39 Bed 19 Private MD: Diagnosis: Gallstone pancreatitis;Acute cholecystitis;Hypokalemia Presentation: 11/13 00:13 Chief complaint: Patient states: I have been vomiting like three times today and I am ha1 having a really bad mid epigastric abdominal pain. Coronavirus screen: Vaccine status: Patient reports receiving the 2nd dose of the covid vaccine. Moderna. Ebola Screen: No symptoms or risks identified at this time. Initial Sepsis Screen: Does the patient meet any 2 criteria? No. Patient's initial sepsis screen is negative. Does the patient have a suspected source of infection? No. Patient's initial sepsis screen is negative. Risk Assessment: Do you want to hurt yourself or someone else? Patient reports no desire to harm self or others. Onset of symptoms was November 13, 2022. 00:13 Method Of Arrival: Wheelchair ha1 00:13 Acuity: MARYANN 3 ha1 04:30 Note initiated transfer to [facility] [place] per patient request. 04:44 Note [place] denied transfer due to capacity Initiated transfer to [facility]. ll3 Triage Assessment: 00:16 General: Appears uncomfortable, Behavior is cooperative. Pain: Complains of pain in mid ha1 epigastric Pain does not radiate. Pain currently is 10 out of 10 on a pain scale. Quality of pain is described as crampy, heavy, Is continuous. EENT: No signs and/or symptoms were reported regarding the EENT system. Neuro: Level of Consciousness is awake, alert, obeys commands, Oriented to person, place, time, situation. Cardiovascular: Capillary refill < 3 seconds Patient's skin is warm and dry. Respiratory: Airway is patent Respiratory effort is even, unlabored, Respiratory pattern is regular, symmetrical. GI: Abdomen is flat, non-distended, Bowel sounds present X 4 quads. Abdomen is tender to palpation X 4 quads. Reports cramping, nausea, vomiting. : No signs and/or symptoms were reported regarding the genitourinary system. Derm: Skin is pink, warm \T\ dry. Musculoskeletal: Circulation, motion, and sensation intact. 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 - Social history:: Smoking status: Patient denies any tobacco usage or history of. - Family history:: not pertinent. Screenin/01 23:50 [facility] ED Fall Risk Assessment (Adult) History of falling in the last 3 months, ha1 including since admission No falls in past 3 months (0 pts) Confusion or Disorientation No (0 pts) Intoxicated or Sedated No (0 pts) Impaired Gait No (0 pts) Mobility Assist Device Used No (0 pt) Altered Elimination No (0 pt) Score/Fall Risk Level 0 - 2 = Low Risk Oriented to surroundings, Maintained a safe environment, Educated pt \T\ family on fall prevention, incl call for assistance when getting out of bed, Hourly rounding (assess needs \T\ fall precautionary measures) done. 11/13 00:22 Abuse screen: Denies threats or abuse. Denies injuries from another. Nutritional ha1 screening: No deficits noted. Tuberculosis screening: No symptoms or risk factors identified. Assessment: 11/12 23:49 Reassessment: see triage assessment. ha1 11/13 00:50 Reassessment: Patient and/or family updated on plan of care and expected duration. Pain ha1 level reassessed. Patient is alert, oriented x 3, equal unlabored respirations, skin warm/dry/pink. Patient states feeling better. Patient states symptoms have improved. 01:30 Reassessment: Patient and/or family updated on plan of care and expected duration. Pain ha1 level reassessed. Patient is alert, oriented x 3, equal unlabored respirations, skin warm/dry/pink. pain at 7/10. Reports pain was increased after vomiting five minutes ago. notified care provider. 02:18 Reassessment: Patient and/or family updated on plan of care and expected duration. Pain ha1 level reassessed. Patient is alert, oriented x 3, equal unlabored respirations, skin warm/dry/pink. back from CT. 02:30 Reassessment: Patient and/or family updated on plan of care and expected duration. Pain ha1 level reassessed. Patient is alert, oriented x 3, equal unlabored respirations, skin warm/dry/pink. reports pain 8/10. 03:30 Reassessment: Patient and/or family updated on plan of care and expected duration. Pain ha1 level reassessed. Patient is alert, oriented x 3, equal unlabored respirations, skin warm/dry/pink. pain 5/10 Patient states feeling better. Patient states symptoms have improved. 04:30 Reassessment: Patient and/or family updated on plan of care and expected duration. Pain ha1 level reassessed. Patient is alert, oriented x 3, equal unlabored respirations, skin warm/dry/pink. pain 8/10. notified. 05:30 Reassessment: Patient and/or family updated on plan of care and expected duration. Pain ha1 level reassessed. Patient is alert, oriented x 3, equal unlabored respirations, skin warm/dry/pink. pain 9/10. notified in shift. 06:45 Reassessment: Patient and/or family updated on plan of care and expected duration. Pain ha1 level reassessed. Patient is alert, oriented x 3, equal unlabored respirations, skin warm/dry/pink. pain 3/10. Vital Signs: 11/12 23:50 BP 134 / 98; Pulse 65; Resp 18 S; Pulse Ox 95% on R/A; ha1 11/13 00:13 BP 134 / 98; Pulse 65; Resp 18; Temp 97.6; Pulse Ox 95% on R/A; Weight 65.77 kg; Height ha1 5 ft. 4 in. (162.56 cm); Pain 07/21; 00:30 BP 149 / 67; Pulse 64; Resp 18 S; Pulse Ox 100% on R/A; ha1 00:50 BP 165 / 88; Pulse 67; Resp 18 S; Pulse Ox 99% on R/A; ha1 01:30 BP 144 / 76; Pulse 63; Resp 16 S; Pulse Ox 98% on R/A; ha1 02:00 BP 134 / 78; Pulse 84; Resp 16 S; Pulse Ox 97% on R/A; ha1 02:30 BP 135 / 84; Pulse 85; Resp 17 S; Pulse Ox 98% on R/A; ha1 03:30 BP 136 / 73; Pulse 87; Resp 17 S; Pulse Ox 97% on R/A; ha1 04:30 BP 128 / 80; Pulse 82; Resp 15 S; Pulse Ox 94% on R/A; ha1 05:30 BP 129 / 73; Pulse 79; Resp 18 S; Pulse Ox 95% on R/A; ha1 06:15 BP 128 / 82; Pulse 87; Resp 14 S; Pulse Ox 95% on R/A; ha1 06:45 BP 128 / 80; Pulse 75; Resp 14 S; Pulse Ox 94% on R/A; ha1 00:13 Body Mass Index 24.89 (65.77 kg, 162.56 cm) ha1 ED Course: 11/12 23:39 Patient arrived in ED. ja2 23:48 Rachid Gandhi MD is Attending Physician. rt 23:50 Patient has correct armband on for positive identification. Placed in gown. Bed in low ha1 position. Call light in reach. Side rails up X 1. Adult w/ patient. 23:55 Door closed. Noise minimized. Lights dimmed. Warm blanket given. Pillow given. ha1 11/13 00:02 Анна Moreno, RN is Primary Nurse. ha1 00:16 Triage completed. ha1 00:16 Arm band placed on right wrist. ha1 00:25 Inserted saline lock: 20 gauge antecubital area, using aseptic technique. Blood ha1 collected. 00:45 Lipase Sent. ha1 00:45 CMP Sent. ha1 00:45 CBC with Diff Sent. ha1 01:31 Notified ED physician of a critical lab result(s). Potassium 2.9 [id number]. kl 02:24 Abdomen In Process Unspecified. EDMS 02:54 SARS RAPID Sent. ha1 03:43 US Abdomen Limited In Process Unspecified. EDMS 06:00 No provider procedures requiring assistance completed. Missed attempt(s): 20 gauge ha1 antecubital area. 06:25 Inserted saline lock: 22 gauge in left forearm, using aseptic technique. ds4 06:51 Patient transferred, IV remains in place. ha1 Administered Medications: 00:20 Drug: Zofran (Ondansetron) 4 mg Route: IVP; Site: left forearm; ha1 00:31 Drug: NS 0.9% 1000 ml Route: IV; Rate: 1 bolus; Site: right antecubital; ha1 01:50 Follow up: Response: No adverse reaction; IV Status: Completed infusion; IV Intake: ha1 1000ml 00:32 Drug: Zofran (Ondansetron) 4 mg Route: IVP; Site: right antecubital; ha1 00:50 Follow up: Response: No adverse reaction; Nausea is decreased ha1 00:35 Drug: morphine 4 mg Route: IVP; Infused Over: 4 mins; Site: right antecubital; ha1 00:50 Follow up: Response: No adverse reaction; Pain is decreased; RASS: Alert and Calm (0) ha1 00:39 Drug: ProTONIX (pantoprazole) 40 mg Route: IVP; Site: right antecubital; ha1 01:57 Drug: morphine 4 mg Route: IVP; Infused Over: 4 mins; Site: right antecubital; ha1 02:30 Follow up: Response: No adverse reaction; Pain is unchanged, physician notified; RASS: 1 Alert and Calm (0) 02:30 Drug: Zofran (Ondansetron) 4 mg Route: IVP; Site: right antecubital; ha1 02:54 Follow up: Response: No adverse reaction ha1 03:15 Drug: Dilaudid (HYDROmorphone) 0.5 mg Route: IVP; Site: right antecubital; ha1 03:30 Follow up: Response: No adverse reaction; Pain is decreased; RASS: Alert and Calm (0) ha1 03:18 Drug: Potassium Chloride 40 mEq Route: IV; Rate: 4 calculated rate; Site: right ha1 antecubital; 04:33 Drug: Meropenem 1 grams Route: IV; Rate: calculated rate; Site: right antecubital; ha1 05:00 Follow up: Response: No adverse reaction; IV Status: Completed infusion; IV Intake: ha1 100ml 06:24 Drug: Dilaudid (HYDROmorphone) 0.5 mg Route: IVP; Site: left forearm; [facility] Medication: 06:51 VIS not applicable for this client. ha1 Intake: 01:50 IV: 1000ml; Total: 1000ml. ha1 05:00 IV: 100ml; Total: 1100ml. ha1 Outcome: 05:24 ER care complete, transfer ordered by . rt 06:50 Transferred by ground EMS to [facility], Note: [place] ha1 EMS 06:50 Condition: stable 06:54 Patient left the ED. ha1 Signatures: Dispatcher [employer] EDMS Modesta Salcedo, RN RN Brandon Hagen 4 Trixie Coelho [place], RN RN 3 Анна Moreno RN RN ha1 Rachid Gandhi MD MD rt Corrections: (The following items were deleted from the chart) 02:11 00:30 Reassessment: Patient and/or family updated on plan of care and expected ha1 duration. Pain level reassessed. Patient is alert, oriented x 3, equal unlabored respirations, skin warm/dry/pink. Patient states feeling better. Patient states symptoms have improved. ha1 02:54 01:54 Zofran (Ondansetron) 4 mg IVP in right antecubital ha1 ha1
--- NOTE | 2022-11-13 05:25 | EDPHYS ---
Physician Documentation [facility] Name: Karlie Johnson Age: 82 yrs Sex: Female : 1940 Arrival Date: 11/12/2022 Time: 23:39 Bed 19 Private MD: ASHLEY Physician Rachid Gandhi HPI: 11/13 00:30 This 82 yrs old Female presents to ER via Wheelchair with complaints of Abdominal Pain, rt Vomiting. 00:30 The patient presents to the emergency department with nausea, vomiting, abdominal pain. rt Patient presents to the ED with any cute onset of epigastric pain, nonradiating, sharp in nature that occurred just after eating dinner. She reports nausea, vomiting. She denies other acute complaints at this time. Symptoms are moderate severity, no other aggravating or alleviating factors.. 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 - Social history:: Smoking status: Patient denies any tobacco usage or history of. - Family history:: not pertinent. ROS: 00:30 Constitutional: Negative for fever, chills, and weight loss, Eyes: Negative for injury, rt pain, redness, and discharge, Neck: Negative for injury, pain, and swelling, Cardiovascular: Negative for chest pain, palpitations, and edema, Respiratory: Negative for shortness of breath, cough, wheezing, and pleuritic chest pain, Back: Negative for injury and pain, MS/Extremity: Negative for injury and deformity, Skin: Negative for injury, rash, and discoloration, Neuro: Negative for headache, weakness, numbness, tingling, and seizure, Psych: Negative for depression, anxiety, suicide ideation, homicidal ideation, and hallucinations. 00:30 Abdomen/GI: Positive for abdominal pain, nausea and vomiting. Exam: 00:30 Constitutional: This is a well developed, well nourished patient who is awake, alert, rt and in no acute distress. Head/Face: Normocephalic, atraumatic. Neck: Trachea midline, no thyromegaly or masses palpated, and no cervical lymphadenopathy. Supple, full range of motion without nuchal rigidity, or vertebral point tenderness. No Meningismus. Chest/axilla: Normal chest wall appearance and motion. Nontender with no deformity. No lesions are appreciated. Cardiovascular: Regular rate and rhythm with a normal S1 and S2. No gallops, murmurs, or rubs. Normal PMI, no JVD. No pulse deficits. Respiratory: Lungs have equal breath sounds bilaterally, clear to auscultation and percussion. No rales, rhonchi or wheezes noted. No increased work of breathing, no retractions or nasal flaring. Skin: Warm, dry with normal turgor. Normal color with no rashes, no lesions, and no evidence of cellulitis. MS/ Extremity: Pulses equal, no cyanosis. Neurovascular intact. Full, normal range of motion. Neuro: Awake and alert, GCS 15, oriented to person, place, time, and situation. Cranial nerves II-XII grossly intact. Motor strength 5/5 in all extremities. Sensory grossly intact. Cerebellar exam normal. Normal gait. Psych: Awake, alert, with orientation to person, place and time. Behavior, mood, and affect are within normal limits. 00:30 Abdomen/GI: Tenderness to the epigastrium with mild guarding, no rebound, no abdominal distention. 00:49 ECG was reviewed by the Attending Physician. LVH with repol abnormality rt Vital Signs: 11/12 23:50 BP 134 / 98; Pulse 65; Resp 18 S; Pulse Ox 95% on R/A; ha1 11/13 00:13 BP 134 / 98; Pulse 65; Resp 18; Temp 97.6; Pulse Ox 95% on R/A; Weight 65.77 kg; Height ha1 5 ft. 4 in. (162.56 cm); Pain 1010; 00:30 BP 149 / 67; Pulse 64; Resp 18 S; Pulse Ox 100% on R/A; ha1 00:50 BP 165 / 88; Pulse 67; Resp 18 S; Pulse Ox 99% on R/A; ha1 01:30 BP 144 / 76; Pulse 63; Resp 16 S; Pulse Ox 98% on R/A; ha1 02:00 BP 134 / 78; Pulse 84; Resp 16 S; Pulse Ox 97% on R/A; ha1 02:30 BP 135 / 84; Pulse 85; Resp 17 S; Pulse Ox 98% on R/A; ha1 03:30 BP 136 / 73; Pulse 87; Resp 17 S; Pulse Ox 97% on R/A; ha1 04:30 BP 128 / 80; Pulse 82; Resp 15 S; Pulse Ox 94% on R/A; ha1 05:30 BP 129 / 73; Pulse 79; Resp 18 S; Pulse Ox 95% on R/A; ha1 06:15 BP 128 / 82; Pulse 87; Resp 14 S; Pulse Ox 95% on R/A; ha1 06:45 BP 128 / 80; Pulse 75; Resp 14 S; Pulse Ox 94% on R/A; ha1 00:13 Body Mass Index 24.89 (65.77 kg, 162.56 cm) ha1 MDM: 00:03 Patient medically screened. rt 04:17 Differential diagnosis: cholecystitis, pancreatitis, bowel obstruction, gastritis. Data rt reviewed: vital signs, nurses notes, lab test result(s), EKG, radiologic studies. I considered the following discharge prescriptions or medication management in the emergency department Medications were administered in the Emergency Department. See MAR. Independent interpretation of the following test(s) in the Emergency Department CT Scan: My interpretation is Pancreas and gallbladder visualized on CT scan. Historians other than the Patient: Daughter/Son: Daughter provided history. Counseling: I had a detailed discussion with the patient and/or guardian regarding: the need to transfer to another facility, for higher level of care, [facility] does not immediately have the required specialist, Patient states that her preference for transferring hospitals would be [facility], if unable to take, they do not have a preference.. Response to treatment: the patient's symptoms have markedly improved after treatment. 11/13 00:17 Order name: CBC with Diff; Complete Time: 01:32 rt 11/13 00:17 Order name: CMP; Complete Time: 03:00 rt 02 00:17 Order name: Lipase; Complete Time: 03:00 rt 11/13 00:17 Order name: Troponin High Sensitivity; Complete Time: 03:00 rt 11/13 01:58 Order name: Lipid Profile; Complete Time: 03:00 EDMS 11/13 00:17 Order name: CT Abd/Pelvis - IV Contrast Only rt 11/13 00:22 Order name: Abdomen EDMS 11/13 02:04 Order name: SARS RAPID; Complete Time: 03:12 kl 11/13 03:02 Order name: US Abdomen Limited rt 11/13 00:17 Order name: EKG; Complete Time: 00:18 rt 02 00:17 Order name: EKG - Nurse/Tech; Complete Time: 00:45 rt EC:49 Rate is 60 beats/min. Rhythm is regular, 1st Degree Block with No ectopy. QRS [place] is rt Normal. CO interval is prolonged at 218 msec. QRS interval is normal. QT interval is normal. Administered Medications: 00:20 Drug: Zofran (Ondansetron) 4 mg Route: IVP; Site: left forearm; ha1 00:31 Drug: NS 0.9% 1000 ml Route: IV; Rate: 1 bolus; Site: right antecubital; ha1 01:50 Follow up: Response: No adverse reaction; IV Status: Completed infusion; IV Intake: ha1 1000ml 00:32 Drug: Zofran (Ondansetron) 4 mg Route: IVP; Site: right antecubital; ha1 00:50 Follow up: Response: No adverse reaction; Nausea is decreased ha1 00:35 Drug: morphine 4 mg Route: IVP; Infused Over: 4 mins; Site: right antecubital; ha1 00:50 Follow up: Response: No adverse reaction; Pain is decreased; RASS: Alert and Calm (0) ha1 00:39 Drug: ProTONIX (pantoprazole) 40 mg Route: IVP; Site: right antecubital; ha1 01:57 Drug: morphine 4 mg Route: IVP; Infused Over: 4 mins; Site: right antecubital; ha1 02:30 Follow up: Response: No adverse reaction; Pain is unchanged, physician notified; RASS: ha1 Alert and Calm (0) 02:30 Drug: Zofran (Ondansetron) 4 mg Route: IVP; Site: right antecubital; ha1 02:54 Follow up: Response: No adverse reaction ha1 03:15 Drug: Dilaudid (HYDROmorphone) 0.5 mg Route: IVP; Site: right antecubital; ha1 03:30 Follow up: Response: No adverse reaction; Pain is decreased; RASS: Alert and Calm (0) ha1 03:18 Drug: Potassium Chloride 40 mEq Route: IV; Rate: 4 calculated rate; Site: right ha1 antecubital; 04:33 Drug: Meropenem 1 grams Route: IV; Rate: calculated rate; Site: right antecubital; ha1 05:00 Follow up: Response: No adverse reaction; IV Status: Completed infusion; IV Intake: ha1 100ml 06:24 Drug: Dilaudid (HYDROmorphone) 0.5 mg Route: IVP; Site: left forearm; ha1 Disposition Summary: 11/13/22 05:24 Transfer Ordered Transfer Location: [facility] rt Reason: Higher level of care rt Condition: Fair rt Problem: new rt Symptoms: have improved rt Accepting Physician: Dr. Loving(11/13/22 06:54) ha1 Diagnosis - Gallstone pancreatitis rt - Acute cholecystitis rt - Hypokalemia rt Forms: - Medication Reconciliation Form rt - SBAR form rt Signatures: Dispatcher [employer] EDMS Анна Moreno RN RN ha1 Rachid Gandhi MD MD rt Corrections: (The following items were deleted from the chart) 01:58 01:46 LIPID PROFILE+[id number].LAB.BRZ ordered. EDNJ EDMS 06:54 05:24 Dr. Loving rt ha1
[2022-11-13 08:12] VITALS: TEMP 97.6
[2022-11-13 08:24] VITALS: BP 128/80; O2SAT 94
--- NOTE | 2022-11-13 14:04 | RAD REPORT ---
EXAM DESCRIPTION: CT - Abdomen Pelvis W Contrast - 11/13/2022 6:29 am CLINICAL HISTORY: 82 years, Female, Epigastric pain COMPARISON: None. TECHNIQUE: Contrast-enhanced images of the abdomen and pelvis were performed utilizing 5 mm slice th ickness at 5 mm interval reconstruction from the lung bases to the ischial tuberosities after the adm inistration of IV contrast. In addition multiplanar reformats in the coronal and sagittal plane were obtained and reviewed. This exam was performed according to our departmental dose-optimization protocol, which includes auto mated exposure control, adjustment of the mA and/or kV according to patient size and/or use of iterat kala reconstruction technique. FINDINGS: The lung bases demonstrate dependent atelectatic changes. There is a moderate size hiatal hernia. The liver demonstrated decreased attenuation corresponding to fatty infiltration. Otherwise the liver , spleen and adrenal glands demonstrate to be unremarkable, no focal lesions are noted. The gallbladder demonstrate the presence of a small layering high density material corresponding to c holelithiasis. There is pericholecystic fluid. Minimal gallbladder wall distention. No significant fi lling defects within the common bile duct. 2 tiny high density material within the third portion of t he duodenum could correspond to calcification and/or calculi on axial image 42 and 43. There is increase size of the pancreatic head with surrounding peripancreatic fluid tracking along th e left pararenal space and posterior subcapsular aspect of the liver suggestive of acute pancreatitis . Incidentally is noted the presence of a third portion duodenum diverticuli. The kidneys demonstrate normal uptake of contrast media. No evidence for nephrolithiasis and/or hydro nephrosis. The left kidney demonstrated presence of the simple lower pole left renal cyst measuring 1 cm on image 31. Grossly the unopacified stomach, small bowel and large bowel demonstrate to be within normal limits. There is no evidence for bowel dilatation/or free air. The appendix is unremarkable. The left site colon is decompressed. There is diverticulosis within the sigmoid colon. The appendix is normal. The urinary bladder demonstrate to be unremarkable. The uterus demonstrate to be atrophic with екатерина y degenerated fibroids. There are no adnexal masses. The aorta demonstrate minimal atheromatous akbar que formation. There is no retroperitoneal lymphadenopathy. There is no evidence for ascites/or sig nificant abnormal fluid collections. The rest of the soft tissue and bony structures are within antonio l limits. IMPRESSION: Findings suggestive of acute pancreatitis. Cholelithiasis with pericholecystic fluid Questionable minimal gallbladder wall enhancement. 2 tiny high density material within the third portion of the duodenum could correspond to calcificati on and/or calculi. Moderate size hiatal hernia. Fatty infiltration of the liver. Sigmoid diverticulosis without evidence of acute diverticulitis. Electronically signed by: Koko Moran MD 11/13/2022 2:44 AM DIE KEEPER Due to temporary technical issues with the PACS/Fluency reporting system, reports are being signed by the in house radiologists without review as a courtesy to insure prompt reporting. The interpreting radiologist is fully responsible for the content of the report.
--- NOTE | 2022-11-13 14:32 | RAD REPORT ---
EXAM DESCRIPTION: US - Abdomen Exam Limited - 11/13/2022 3:42 am CLINICAL HISTORY: 82 years, Female, ABD PAIN COMPARISON: Previous CT scan of the abdomen and pelvis. TECHNIQUE: Utilizing a curved array transducer, real-time ultrasound evaluation of the abdominal vis cera was performed. Color Doppler imaging was used to assess vascular flow. FINDINGS: Limited evaluation of the right upper quadrant demonstrate slight prominence of the gallbl adder/extension with pericholecystic fluid. There is gallbladder wall thickening measuring 4.6 mm. Th ere is a calculus within the fundus of the gallbladder. The common bile duct measures 5 mm. No signif icant intrahepatic biliary duct dilatation was identified. No significant free fluid within the upper abdomen. The pancreas was not imaged and/or visualized for demonstration of acute pancreatitis. IMPRESSION: Cholelithiasis with gallbladder wall thickening and pericholecystic fluid compatible wit h acute cholecystitis. Electronically signed by: Koko Moran MD 11/13/2022 4:07 AM BUYER LIAISON Due to temporary technical issues with the PACS/Fluency reporting system, reports are being signed by the in house radiologists without review as a courtesy to insure prompt reporting. The interpreting radiologist is fully responsible for the content of the report.
== END 2022-11-13 06:54 | disposition short-term general hospital (02) ==
LOC: ER 23:34
DX: K85.10 Biliary acute pancreatitis without necrosis or infection (principal); K81.0 Acute cholecystitis; E87.6 Hypokalemia; I10 Essential (primary) hypertension; Z20.822 Contact with and (suspected) exposure to COVID-19; Z79.82 Long term (current) use of aspirin
CPT/HCPCS: 36415; 74177; 76705; 80053; 80061; 83690; 84484; 85025; 87811; 93005; C9113; J1170; J2185; J2405; J3480; J7030; J7040; Q9967